=== PATIENT | male | born 1975 | race Caucasian/White ===

== ENCOUNTER → 2020-04-02 16:42 | Outpatient (BNVA) | payer SELFPAY | PROVIDERS: Visit Provider Electrodiagnostic Medicine | DX: Z11.59 Encounter for screening for other viral diseases (principal) | CPT/HCPCS: 87635 ==

== ENCOUNTER 2021-05-07 13:18 | Outpatient (CLI) | payer OTHER, SELFPAY ==
--- NOTE | 2021-05-07 13:24 | XR_ITS ---
WS: [email or web address] CERVICAL SPINE TECHNIQUE: 3 views of the cervical spine CLINICAL INFORMATION: NECK PAIN, ACUTE COMPARISON: None. FINDINGS: Straightening of the normal cervical lordosis. Normal C1-2 articulation. Anterior cervical plate and screw fixation C6-7 with interbody fusion graft. Normal alignment on the neutral view. No instability on flexion-extension. Normal dens. XR/XR cervical spine 4-5V 79025 IMPRESSION: 1. Straightening of the normal cervical lordosis. No instability on flexion-ex tension. 2. Postoperative changes anterior cervical plate and screw fixation C6-7 with interbody fusion graft.
== END 2021-05-07 13:19 | disposition home or self-care (01) ==
PROVIDERS: Visit Provider Electrodiagnostic Medicine
DX: M54.2 Cervicalgia (principal)
CPT/HCPCS: 72050

== ENCOUNTER 2021-11-12 16:42 | Outpatient (CLI) | payer OTHER, SELFPAY ==
--- NOTE | 2021-11-12 16:53 | XR_ITS ---
WS: [email or web address] Bilateral hips, 2 views each, 11/12/2021 Clinical Data: HIP PAIN, BILATERAL Comparison: None. Findings: Right hip: There are no fractures or dislocations. The right hip shows no erosion, sclerosis, narrowing or fragm entation of the right femoral head. The adjacent right pelvis is unremarkable. The soft tissues are n ormal. Left hip: There are no fractures or dislocations. The left hip shows no erosion, sclerosis, narrowing or fragme ntation of the left femoral head. The adjacent left pelvis is unremarkable. The soft tissues are norm al. XR/XR hip BI 3-4V wo/w pel [id number] Impression: Negative bilateral hips.
== END 2021-11-12 16:43 | disposition home or self-care (01) ==
PROVIDERS: PCP Family Medicine; Visit Provider Family Medicine
DX: M25.551 Pain in right hip (principal); M25.552 Pain in left hip
CPT/HCPCS: 73522; 80053; 80061

== ENCOUNTER → 2022-07-02 11:31 | Outpatient (BNVA) | payer OTHER, SELFPAY | PROVIDERS: PCP Family Medicine; Visit Provider Family Medicine | DX: Z00.01 Encounter for general adult medical examination with abnormal findings (principal); M19.90 Unspecified osteoarthritis, unspecified site; R53.83 Other fatigue | CPT/HCPCS: 80053; 80061; 82040; 82607; 84270; 84403; 84443; 85025; 85651; 86140; 86160; 86162; 86235; 86255; 86376 ==

== ENCOUNTER 2022-09-27 08:58 | Outpatient (CLI) | payer OTHER, SELFPAY ==
--- NOTE | 2022-09-27 09:06 | XR_ITS ---
WS: [email or web address] XR hand RT 2V [id number] REASON FOR EXAM: R76.8 - Other specified abnormal immunological findings i... FINDINGS: No fracture or focal bone lesion. Joint spaces of the hand are intact and relatively well-preserved. There is minimal narrowing with ashby bchondral sclerosis in the joints of the thumb. No erosions or periosteal reaction. No soft tissue abnormality. 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
--- NOTE | 2022-09-27 09:06 | XR_ITS ---
WS: [email or web address] XR sacroiliac jts m 3V 67780 REASON FOR EXAM: R76.8 - Other specified abnormal immunological findings i... FINDINGS: No fracture or focal bone lesion. Sacroiliac joints are well defined without erosion, bridging, or fusion. Thin margins of sclerosis outlined the joint spaces. XR/XR sacroiliac jts m 3V 16507 IMPRESSION: No significant abnormality.
--- NOTE | 2022-09-27 09:06 | XR_ITS ---
WS: [email or web address] XR lumbar spine 2-3V* [id number] REASON FOR EXAM: R76.8 - Other specified abnormal immunological findings i... FINDINGS: No significant rotatory scoliosis. Relatively normal lordosis. No focal vertebral body abnormality. Intervertebral disc spaces are intact and relatively well-preserved. Minimal anterior osteophyte form ation at L4 and L5. No spondylolysis or spondylolisthesis. XR/XR lumbar spine 2-3V* [id number] IMPRESSION: Minimal change of degenerative spondylosis as above.
--- NOTE | 2022-09-27 09:06 | XR_ITS ---
WS: [email or web address] XR knee RT 1-2V 81403 REASON FOR EXAM: R76.8 - Other specified abnormal immunological findings i... FINDINGS: No fracture or other focal bone lesion. Medial knee joint space, lateral knee joint space, and the patellofemoral joint space are intact and well preserved. No subchondral bone abnormality. No soft tissue abnormality. XR/XR knee RT 1-2V 07940 IMPRESSION: No significant abnormality.
--- NOTE | 2022-09-27 09:06 | XR_ITS ---
WS: [email or web address] XR knee LT 1-2V 06140 REASON FOR EXAM: R76.8 - Other specified abnormal immunological findings i... FINDINGS: No fracture or focal bone lesion. Medial, lateral, and patellofemoral joint spaces are intact and well preserved. No significant subchondral bone change. No soft tissue abnormality. XR/XR knee LT 1-2V 23235 IMPRESSION: No significant abnormality.
--- NOTE | 2022-09-27 09:06 | XR_ITS ---
WS: [email or web address] XR hand LT 2V 40039 REASON FOR EXAM: R76.8 - Other specified abnormal immunological findings i... FINDINGS: No fracture or focal bone lesion. Possible benign bone island in the radial styloid. Joint spaces of the left hand are relatively well-preserved.Minimal joint space narrowing with subcho ndral sclerosis in the joints of the thumb. No erosions or periosteal reaction. No soft tissue abnormality. XR/XR hand LT 2V 28305 IMPRESSION: Mild osteoarthritis of the thumb.
[2022-09-27 11:23] LABS: Creatine Phosphokinase 48 U/L (39-308); Testosterone Total 330.6 ng/dL (249-836); Thyroid Stimulating Hormone 1.71 uIU/mL (0.27-4.20)
[2022-09-27 11:38] LABS: Hepatitis B Core AB, Total Non-Reactive (Nonreactive); Hepatitis B Surface Antigen Non-Reactive (Nonreactive); Hepatitis C Virus Antibody Non-Reactive (Nonreactive)
[2022-09-27 12:36] LABS: Vitamin B12 553 pg/mL (232-1245)
[2022-09-29 16:49] LABS: Cyclic Citrullinated Peptide <16 UNITS
== END 2022-09-27 08:59 | disposition home or self-care (01) ==
LOC: RAD 09:01
PROVIDERS: PCP Family Medicine; Visit Provider Internal Medicine
DX: R76.8 Other specified abnormal immunological findings in serum (principal); M19.042 Primary osteoarthritis, left hand; M19.041 Primary osteoarthritis, right hand
CPT/HCPCS: 36415; 72100; 72202; 73120; 73560; 82550; 82607; 83516; 84100; 84403; 84443; 86200; 86431; 86704; 86803; 87340

== ENCOUNTER 2022-11-08 12:27 | Outpatient (CLI) | payer OTHER, SELFPAY ==
[2022-11-21 01:35] LABS: 14.3.3 ETA Protein <0.2 ng/mL (<0.2)
== END 2022-11-08 12:28 | disposition home or self-care (01) ==
LOC: LAB 12:32
PROVIDERS: PCP Family Medicine; Visit Provider Internal Medicine
DX: R79.89 Other specified abnormal findings of blood chemistry (principal); R76.8 Other specified abnormal immunological findings in serum
CPT/HCPCS: 83520

== ENCOUNTER 2022-11-11 07:31 | Outpatient (CLI) | payer OTHER, SELFPAY ==
--- NOTE | 2022-11-11 08:45 | MR_ITS ---
WS: [email or web address] MRI RIGHT HAND WITHOUT GADOLINIUM ENHANCEMENT. INDICATION: Lateral RIGHT hand pain TECHNIQUE: Axial T2, axial T1, coronal T1, coronal STIR, sagittal T2 fat sat, coronal 3-D FSPGR FINDINGS: Mild degenerative arthritis at the 1st CMC and STT. Small amount of subchondral sclerosis w ith subchondral cystic lesion in the base of the 1st metacarpal. Normal bone marrow signal in the met acarpals. No acute fractures. Phalanges are normal in appearance. No evidence of soft tissue mass or lesion along the lateral aspect of the hand. Palpable marker undersurface 5th MCP joint. Small sesamoid bone or prior avulsion at the underlying 5 th MCP joint. Normal underlying abductor and flexor digit minimi. Small amount of edema with increase d T2 signal abnormality along the underlying flexor digitorum profundus compatible with tenosynovitis . Irregularity with increased fluid and edema along the A1 and proximal A2 mark anthony. Recommend correlat ion prior ligamentous injury. MR/MR hand RT wo con* [id number] IMPRESSION: 1. Small sesamoid or tiny chronic avulsion deep to the palpable marker at the 5th MCP joint. 2. Small amount of increased signal abnormality along the adjacent flexor digi torum profundus compatible with tenosynovitis 3. Increased signal with irregularity along the underlying flexor tendon sheat h A1 and proximal A2 mark anthony. Recommend correlation with prior ligamentous injur y 4. No other suspicious findings
== END 2022-11-11 07:32 | disposition home or self-care (01) ==
PROVIDERS: PCP Family Medicine; Visit Provider Internal Medicine
DX: M19.90 Unspecified osteoarthritis, unspecified site (principal); M79.89 Other specified soft tissue disorders; R76.8 Other specified abnormal immunological findings in serum
CPT/HCPCS: 73218